=== PATIENT | male | born 1995 | race Caucasian/White ===

== ENCOUNTER 2017-09-29 10:12 | Emergency (ER) | payer BC ==
[2017-09-29 10:28] VITALS: BP 124/85
--- NOTE | 2017-09-29 11:25 | UC ---
Upper Extremity HPI - HPI Summary HPI Summary: Patient is an otherwise healthy 21-year-old male presenting to the urgent care with chief complaint of right dorsal wrist pain. He sustained injury last night after a fall. Denies any loss of consciousness or hitting his head. Denies any other injuries. No abrasions or lacerations are visualized. There is no edema or ecchymosis or surrounding the area. He has not taken anything for relief. Pain is rated a 2 out of 10 and worse with flexion. Denies any pain with extension. Able to rotate about the elbow and the wrist without incurring any additional pain. - History of Current Complaint Chief Complaint: UCUpperExtremity Stated Complaint: WRIST INJURY Time Seen by Provider: 09/29/17 10:18 Hx Obtained From: Patient ?: No Onset/Duration: Sudden Onset Severity Initially: Mild Severity Currently: Mild Pain Intensity: 6 Pain Scale Used: 0-10 Numeric Location Of Pain: Is Discrete @ - right wrist Character: Aching Aggravating Factor(s): Movement, Lifting, Flexion Associated Signs And Symptoms: Positive: Negative Related History: Dominant Hand Right - Risk Factors Non-Orthopedic Risk Factor: Negative DVT Risk Factors: Negative Septic Arthritis Risk Factor: Negative Compartment Syndrome Risk Factors: Pain - Allergies/Home Medications Allergies/Adverse Reactions: Allergies Allergy/AdvReac Type Severity Reaction Status Date / Time No Known Allergies Allergy Verified 09/29/17 10:24 Home Medications: Home Medications Ibuprofen TAB* [Advil TAB*] 400 mg PO Q8HR PRN 09/29/17 [History Confirmed 09/29] PMH/Surg Hx/FS Hx/Imm Hx Previously Healthy: Yes - Surgical History Surgical History: Yes Surgery Procedure, Year, and Place: Upper and Lower Jaw Surgery 11/2016 - Social History Occupation: Employed Full-time Alcohol Use: Occasionally Substance Use Type: None Smoking Status (MU): Never Smoked Tobacco Review of Systems Constitutional: Negative Skin: Negative Respiratory: Negative Cardiovascular: Negative Motor: Decreased ROM - Flexion of the wrist Neurovascular: Negative Musculoskeletal: Negative Neurological: Negative Is Patient Immunocompromised?: No All Other Systems Reviewed And Are Negative: Yes Physical Exam Triage Information Reviewed: Yes Appearance: Well-Appearing, Well-Nourished Vital Signs: Initial Vital Signs Temp 97.6 F 09/29/17 10:25 Pulse 68 09/29/17 10:25 Resp 16 09/29/17 10:25 BP 124/85 09/29/17 10:25 Pulse Ox 99 09/29/17 10:25 Vital Signs Reviewed: Yes Eye Exam: Normal Eyes: Positive: Conjunctiva Clear Neck exam: Normal Neck: Positive: Supple, No Lymphadenopathy Respiratory Exam: Normal Respiratory: Positive: Chest non-tender, Lungs clear Cardiovascular Exam: Normal Cardiovascular: Positive: RRR Musculoskeletal Exam: Normal Musculoskeletal: Positive: Strength Intact Neurological Exam: Normal Neurological: Positive: Alert Psychological: Positive: Normal Response To Family Skin Exam: Normal Upper Extremity Course/Dx - Course Course Of Treatment: During the course of treatment, the patient is evaluated for right wrist pain. He also states he fell onto his left forearm, but denies any pain. He is unsure of the mechanism of injury other than the fall. Denies any loss of consciousness or hitting his head. Denies any other pain or injuries. No ecchymosis is seen. He is able to extend at the wrist joint, but denies pain with flexion. X-ray obtained which shows no acute findings. Rommel wrapped for comfort. Patient is encouraged ibuprofen and should return if any symptoms come worse. He is okay with this plan and discharge at this time. - Differential Dx/Diagnosis Differential Diagnosis/HQI/PQRI: Strain, Sprain Provider Diagnoses: R wrist sprain Discharge - Sign-Out/Discharge Documenting (check all that apply): Discharge - Discharge Plan Condition: Stable Disposition: HOME Patient Education Materials: Wrist Sprain (ED) Referrals: No Primary Care Phys,NOPCP [Primary Care Provider] - Additional Instructions: Ice Ibuprofen 600mg three times daily Keep rommel wrap applied for comfort - Billing Disposition and Condition Condition: STABLE Disposition: HOME
--- NOTE | 2017-09-29 11:59 | RAD ---
INDICATION: RIGHT wrist pain post fall. COMPARISON: None. TECHNIQUE: AP, lateral, and oblique views RIGHT wrist. REPORT: Normal articular alignment. No cortical disruption or suspicious trabecular irregularity to suggest fracture. Unremarkable soft tissue contours. IMPRESSION: Negative radiographic exam of the RIGHT wrist. If there is high index of suspicion for an occult scaphoid fracture repeat exam in 7 - 10 days would be suggested.
== END 2017-09-29 11:25 | disposition home or self-care (01) ==
LOC: UCEAST 10:12
DX: S63.501A Unspecified sprain of right wrist, initial encounter (principal); W19.XXXA Unspecified fall, initial encounter; Y92.9 Unspecified place or not applicable
CPT/HCPCS: 99211; G0463